=== PATIENT | female | born 1970 | race Two or more races ===

== ENCOUNTER 2024-03-04 01:42 | Inpatient (IN) | payer MEDICARE, MEDICAID ==
[~2024-03-04] VITALS: Ht 162.6 cm; Wt 68.2 kg
[2024-03-04 02:09] LABS: EOSINOPHILS % (AUTO) 6.9 % (1.0-6.0); HEMATOCRIT 42.3 % (36-46); HEMOGLOBIN 14.1 g/dL (12.0-16.0); LYMPHOCYTES # (AUTO) 2.4 K/uL (1.0-4.8); LYMPHOCYTES % (AUTO) 37.6 % (22.0-44.0); MEAN CORPUSCULAR HGB CONC 33.3 G/dL (31.0-37.0); MEAN CORPUSCULAR VOLUME 93 fL (80-100); MONOCYTES # (AUTO) 0.9 K/uL (0.1-1.0); MONOCYTES % (AUTO) 13.8 % (2.0-9.0); NEUTROPHILS # (AUTO) 2.6 K/uL (1.8-7.7); NEUTROPHILS % (AUTO) 40.7 % (40.0-70.0); PLATELET COUNT (AUTO) 408 K/uL (150-450); RED BLOOD CELL COUNT(AUTO) 4.55 MIL/uL (4.00-5.20); RED CELL DISTRIBUTION WIDTH 14.6 % (11.5-14.5); WHITE BLOOD COUNT (AUTO) 6.4 K/uL (4.5-11.0)
[2024-03-04 02:11] LABS: COVID AG,FIA SOURCE NASAL SWAB
[2024-03-04 02:25] LABS: ALANINE AMINOTRANSFERASE 22 U/L (12-78); ALKALINE PHOSPHATASE 92 U/L (46-116); ANION GAP 14 mmol/L (8-16); ASPARTATE AMINOTRANSFERASE 22 U/L (15-37); BILIRUBIN,TOTAL 0.3 mg/dL (0.1-1.0); CALCIUM, TOTAL 8.8 mg/dL (8.8-10.5); CARBON DIOXIDE 26 mmol/L (22-29); CHLORIDE 105 mmol/L (98-107); GLOMERULAR FILTR. RATE CALC > 60 mL/min (>60); GLUCOSE,RANDOM 135 mg/dL (70-110); SODIUM SERUM 145 mmol/L (136-145); TOTAL PROTEIN, SERUM 7.4 g/dL (6.4-8.2); UREA NITROGEN, BLOOD 19 mg/dL (7-18)
[2024-03-04 02:26] LABS: SARS-COV2 (COVID) ANTIGEN,FIA Negative (Negative)
[2024-03-04 02:26] LABS: POTASSIUM 2.8 mmol/L (3.5-5.1)
[2024-03-04] MEDS ORDERED: POTASSIUM CHLORIDE 20 MEQ ER TABLET ONE (02:32)
[2024-03-04] MEDS: POTASSIUM CHLORIDE 20 MEQ ER TABLET PO ONE ×2 (02:34→13:15)
[2024-03-04 02:36] LABS: ALCOHOL, BLOOD (SERUM) < 3 mg/dL (0-10)
[2024-03-04] MEDS ORDERED: OLANZapine 5 MG RAPDIS TABLET PO PRN (04:00)
[2024-03-04] MEDS ORDERED: LORazepam 2 MG TABLET PO PRN (04:00)
[2024-03-04] MEDS ORDERED: DULO-113 PO (08:12)
[2024-03-04] MEDS ORDERED: METO-408 PO (08:12)
[2024-03-04] MEDS ORDERED: FINA5TAB41 PO (08:12)
[2024-03-04] MEDS ORDERED: LISI30TA4 PO (08:12)
[2024-03-04] MEDS ORDERED: GABA-529 PO (08:12)
[2024-03-04] MEDS: HALOPERIDOL LACTATE 5 MG/ML VIAL IM ONE (09:59)
[2024-03-04] MEDS: LORazepam 2 MG/ML VIAL IM ONE (09:59)
[2024-03-04] MEDS: DiphenhydrAMINE HCL 50 MG/ML VIAL IM ONE (09:59)
[2024-03-04] MEDS ORDERED: ACETAMINOPHEN 325 MG TABLET PO PRN (10:30)
[2024-03-04] MEDS ORDERED: LOPERAMIDE HCL 2 MG CAPSULE PO PRN (10:30)
[2024-03-04] MEDS ORDERED: MAG HYDROX/ALUMINUM HYD/SIMETH ES 30 ML SUSPENSION UDCUP PO PRN (10:30)
[2024-03-04] MEDS ORDERED: TUBERCULIN, PURIFIED PROTEIN DERIVATIVE 5 TU/0.1 ML SYRINGE ID ONE (10:30)
[2024-03-04] MEDS ORDERED: GuaiFENesin/D-METHORPHAN [SUGAR-FREE] 200-20MG/10 ML SYRUP UDCUP PO PRN (10:30)
[2024-03-04] MEDS ORDERED: PROMETHAZINE HCL 25 MG TABLET PO PRN (10:30)
[2024-03-04] MEDS ORDERED: MAGNESIUM HYDROXIDE SUSPENSION 30 ML UDCUP PO PRN (10:30)
[2024-03-04] MEDS: GABAPENTIN 100 MG CAPSULE PO SCH (13:00)
[2024-03-04 13:33] VITALS: BP 141/93; PULSE 59; RESP 16; TEMP 97.3; O2SAT 97
[2024-03-04] MEDS: LISINOPRIL 10 MG TABLET PO SCH (16:15)
[2024-03-04] MEDS: THIAMINE 100 MG TABLET PO SCH (17:00)
[2024-03-04 20:22] VITALS: RESP 18
[2024-03-04] MEDS: DIVALPROEX SODIUM 250 MG ER TABLET PO SCH (21:00)
[2024-03-04] MEDS: OLANZapine 5 MG RAPDIS TABLET PO SCH (21:00)
[2024-03-04] MEDS: MELATONIN 5 MG TABLET PO SCH (21:00)
[2024-03-05] MEDS: OMEGA-3/DHA/EPA/FISH OIL 1,000 MG CAPSULE PO SCH (09:27)
[2024-03-05] MEDS: FOLIC ACID 1 MG TABLET PO SCH (09:27)
[2024-03-05] MEDS: MULTIVITAMINS WITH MINERALS, THERAPEUTIC TABLET PO SCH (09:28)
[2024-03-05] MEDS: NALTREXONE HCL 50 MG TABLET PO SCH (09:29)
[2024-03-05] MEDS: POTASSIUM CHLORIDE 20 MEQ ER TABLET PO ONE (10:28)
[2024-03-05] MEDS: METOPROLOL SUCCINATE 25 MG ER TABLET PO SCH (10:28)
[2024-03-05 11:48] VITALS: BP 148/90; PULSE 79; RESP 17; TEMP 97.5; O2SAT 99
[2024-03-05] MEDS: GABAPENTIN 400 MG CAPSULE PO SCH (17:52)
[2024-03-05] MEDS: BusPIRone HCL 5 MG TABLET PO SCH (17:53)
[2024-03-05 20:40] VITALS: BP 131/79; PULSE 66; RESP 18; TEMP 98.2; O2SAT 97
[2024-03-05] MEDS: AMITRIPTYLINE HCL 10 MG TABLET PO SCH (20:44)
[2024-03-05] MEDS: ZOLPIDEM TARTRATE 10 MG TABLET PO PRN (21:49)
[2024-03-06] MEDS: DULoxetine HCL 30 MG CAPSULE PO SCH (08:00)
[2024-03-06 08:07] VITALS: BP 143/83; PULSE 64; RESP 17; TEMP 97.7; O2SAT 99
[2024-03-06] MEDS ORDERED: DESIPRAMINE HCL 10 MG TABLET PO SCH (09:00)
[2024-03-06 09:50] LABS: CHOL/HDL RATIO 2.6 (3.9-5.7); FREE T4 (FREE THYROXINE) 1.26 ng/dL (0.76-1.46); POTASSIUM 3.2 mmol/L (3.5-5.1); THYROID STIMULATING HORMONE 0.29 uIU/mL (0.36-3.74)
[2024-03-06] MEDS: POTASSIUM CHLORIDE 20 MEQ ER TABLET PO ONE ×2 (11:03→16:27)
[2024-03-06 14:26] VITALS: BP 146/78; PULSE 60; RESP 18; TEMP 97.2; O2SAT 98
[2024-03-06] MEDS ORDERED: NALT50TA33 PO (15:14)
[2024-03-06] MEDS ORDERED: DULO-114 PO (15:14)
[2024-03-06] MEDS ORDERED: MELA5TAB40 PO (15:14)
[2024-03-06] MEDS ORDERED: AMIT-166 PO (15:14)
[2024-03-06] MEDS ORDERED: OMEG-135 PO (15:14)
[2024-03-06] MEDS ORDERED: GABA-1201 PO (15:14)
[2024-03-06] MEDS ORDERED: BUSP10TA23 PO (15:14)
[2024-03-06] MEDS: BusPIRone HCL 10 MG TABLET PO SCH (16:27)
[2024-03-06] MEDS: GABAPENTIN 300 MG CAPSULE PO SCH (16:28)
[2024-03-06] MEDS: HydrOXYzine PAMOATE 50 MG CAPSULE PO PRN (19:36)
[2024-03-06 20:35] VITALS: BP 139/85; PULSE 65; RESP 18; TEMP 97.9; O2SAT 97
[2024-03-06] MEDS: AMITRIPTYLINE HCL 10 MG TABLET PO SCH (21:09)
[2024-03-07] MEDS: DULoxetine HCL 20 MG CAPSULE PO SCH (08:47)
[2024-03-07 09:51] VITALS: BP 157/66; PULSE 62; RESP 18; TEMP 97.4; O2SAT 98
[2024-03-07] MEDS ORDERED: AMIT-166 PO (12:21)
[2024-03-07] MEDS ORDERED: BUSP10TA23 PO (12:21)
[2024-03-07] MEDS ORDERED: DULO20CA71 PO (12:22)
[2024-03-07] MEDS ORDERED: GABA-1181 PO (12:22)
[2024-03-07] MEDS ORDERED: MELA5TAB40 PO (12:23)
[2024-03-07] MEDS ORDERED: NALT50TA33 PO (12:24)
[2024-03-07] MEDS ORDERED: OMEG-135 PO (12:24)
[2024-03-10] MEDS ORDERED: BACL10TA PO (09:08)
[2024-03-10] MEDS ORDERED: GABA-1181 PO (09:08)
== END 2024-03-07 16:02 | disposition home or self-care (01) | DRG 885 ==
LOC: EMS 01:42 → UNDOADMIN 05:13 → 3EC 05:13 → 3EI 05:13
PROVIDERS: ADMIT Psychiatry & Neurology Psychiatry; ATTEND Psychiatry & Neurology Psychiatry
PROC: GZHZZZZ Group Psychotherapy (ICD-10-PCS; principal; 2024-03-04)
PROC: GZ51ZZZ Individual Psychotherapy, Behavioral (ICD-10-PCS; 2024-03-04)
PROC: GZ56ZZZ Individual Psychotherapy, Supportive (ICD-10-PCS; 2024-03-05)
DX: F25.9 Schizoaffective disorder, unspecified (principal); F33.2 Major depressive disorder, recurrent severe without psychotic features; F29 Unspecified psychosis not due to a substance or known physiological condition; F17.210 Nicotine dependence, cigarettes, uncomplicated; F10.10 Alcohol abuse, uncomplicated; F12.10 Cannabis abuse, uncomplicated; M54.2 Cervicalgia; F41.9 Anxiety disorder, unspecified; Z20.822 Contact with and (suspected) exposure to COVID-19; E87.6 Hypokalemia; F44.5 Conversion disorder with seizures or convulsions; Z88.6 Allergy status to analgesic agent; Z88.1 Allergy status to other antibiotic agents; Z88.0 Allergy status to penicillin; Z88.2 Allergy status to sulfonamides; Z88.3 Allergy status to other anti-infective agents; Z79.899 Other long term (current) drug therapy
CPT/HCPCS: 70450; 80053; 80061; 83036; 84132; 84439; 84443; 85025; 86592; 99285; G0480; J1200; J1630; J2060; Q9967

== ENCOUNTER 2025-09-09 07:57 | Inpatient (IN) | payer OTHER ==
[~2025-09-09] VITALS: Ht 160 cm; Wt 74.0 kg
[~2025-09-09 07:57] MED LIST: CIPR250T6 PO; LISI20TA24 PO; OLAN5TAB94 PO; OXCA300T70 PO
[2025-09-09 08:26] LABS: COVID AG,FIA SOURCE NASAL SWAB
[2025-09-09 08:30] LABS: PLATELET COUNT (AUTO) 298 K/uL (150-450); RED BLOOD CELL COUNT(AUTO) 4.96 MIL/uL (4.00-5.20); RED CELL DISTRIBUTION WIDTH 14.3 % (11.5-14.5); WHITE BLOOD COUNT (AUTO) 5.3 K/uL (4.5-11.0)
[2025-09-09 08:35] LABS: CALCIUM, TOTAL 8.7 mg/dL (8.8-10.5); CREATININE 0.78 mg/dL (0.60-1.30); GLOMERULAR FILTR. RATE CALC > 60 mL/min (>60); GLUCOSE,RANDOM 129 mg/dL (70-110); SODIUM SERUM 142 mmol/L (136-145); UREA NITROGEN, BLOOD 17 mg/dL (7-18)
[2025-09-09 09:20] LABS: SARS-COV2 (COVID) ANTIGEN,FIA Negative (Negative)
[2025-09-09] MEDS: POTASSIUM CHLORIDE 40 MEQ in SODIUM CHLORIDE 0.45% 1,000 ML IV ONE (09:31)
[2025-09-09] MEDS: LORazepam 2 MG/ML VIAL IVP ONE (10:53)
[2025-09-09 13:57] LABS: APPEARANCE,URINE HAZY (CLEAR); GLUCOSE, URINE (UA) NEGATIVE (NEGATIVE); LEUKOCYTE ESTERASE ,URINE LARGE (NEGATIVE); NITRATE,URINE NEGATIVE (NEGATIVE); OCCULT BLOOD,URINE NEGATIVE (NEGATIVE); PH,URINE DRUG SCREEN 6.5 (5.0-8.0); SPECIFIC GRAVITIY, URINE 1.027 (1.003-1.030)
[2025-09-09 14:04] LABS: ALCOHOL, URINE DRUG SCREEN NEGATIVE (NEGATIVE); AMPHET/METH SCREEN,URINE NEGATIVE (NEGATIVE); BARBITURATE SCREEN, URINE NEGATIVE (NEGATIVE); CANNABINOID SCREEN,URINE POSITIVE (NEGATIVE); COCAINE SCREEN,URINE NEGATIVE (NEGATIVE); METHADONE SCREEN, URINE NEGATIVE (NEGATIVE); SQUAMOUS EPITHELIAL CELL,UR Moderate /LPF (None Seen)
[2025-09-09] MEDS: POTASSIUM CHLORIDE 20 MEQ ER TABLET PO ONE (14:42)
[2025-09-09] MEDS ORDERED: ZOLPIDEM TARTRATE 5 MG TABLET PO PRN (15:30)
[2025-09-09] MEDS ORDERED: HYDROCODONE/ACETAMINOPHEN 5-325 MG TABLET PO PRN (15:30)
[2025-09-09] MEDS ORDERED: MORPHINE SULFATE 4 MG/ML SYRINGE IVP PRN (15:30)
[2025-09-09] MEDS ORDERED: ONDANSETRON HCL 4 MG/2 ML VIAL IVP PRN (15:30)
[2025-09-09] MEDS ORDERED: BISACODYL 10 MG RECTAL RECTAL SUPPOSITORY PR PRN (15:30)
[2025-09-09] MEDS ORDERED: POTASSIUM CHL 10 MEQ/WATER 50 ML IV PRN (15:30)
[2025-09-09] MEDS: *CLINICAL-LEVOFLOXACIN IVPB DOSING CLINICAL ONE (15:30)
[2025-09-09] MEDS ORDERED: ACETAMINOPHEN 325 MG TABLET PO PRN (15:30)
[2025-09-09] MEDS ORDERED: MAGNESIUM HYDROXIDE SUSPENSION 30 ML UDCUP PO PRN (15:30)
[2025-09-09] MEDS: LEVOFLOXACIN 750 MG/D5% WATER 150 ML IV SCH (16:15)
[2025-09-09] MEDS: HEPARIN SODIUM,PORCINE 5,000 UNITS/ML VIAL SQ SCH (16:15)
[2025-09-09] MEDS: DOCUSATE SODIUM 100 MG CAPSULE PO SCH (21:00)
[2025-09-09 21:47] VITALS: BP 137/59; PULSE 71; RESP 19; TEMP 98.2; O2SAT 97
[2025-09-09] MEDS: OLANZapine 5 MG RAPDIS TABLET PO SCH (22:07)
[2025-09-09 23:39] VITALS: BP 135/81; PULSE 71; RESP 17; TEMP 97.9; O2SAT 97
[2025-09-10 03:52] VITALS: BP 144/77; PULSE 62; RESP 17; TEMP 97.9; O2SAT 97
[2025-09-10 05:33] LABS: PLATELET COUNT (AUTO) 280 K/uL (150-450); RED BLOOD CELL COUNT(AUTO) 4.52 MIL/uL (4.00-5.20); RED CELL DISTRIBUTION WIDTH 14.7 % (11.5-14.5); WHITE BLOOD COUNT (AUTO) 4.9 K/uL (4.5-11.0)
[2025-09-10 05:42] LABS: CALCIUM, TOTAL 8.4 mg/dL (8.8-10.5); CREATININE 0.46 mg/dL (0.60-1.30); GLOMERULAR FILTR. RATE CALC > 60 mL/min (>60); GLUCOSE,RANDOM 85 mg/dL (70-110); SODIUM SERUM 146 mmol/L (136-145); UREA NITROGEN, BLOOD 13 mg/dL (7-18)
[2025-09-10] MEDS: POTASSIUM CHLORIDE 20 MEQ ER TABLET PO PRN (06:45)
[2025-09-10 07:19] VITALS: BP 142/76; PULSE 76; RESP 18; TEMP 98; O2SAT 97
[2025-09-10] MEDS: PANTOPRAZOLE SODIUM 40 MG DR TABLET PO SCH (08:45)
[2025-09-10 11:30] VITALS: BP 151/96; PULSE 87; RESP 19; TEMP 98; O2SAT 96
[2025-09-10 16:06] VITALS: BP 133/79; PULSE 74; RESP 18; TEMP 97; O2SAT 97
[2025-09-10] MEDS ORDERED: SODIUM CHLORIDE 0.9% 250 ML IV ONE (16:27)
[2025-09-10 19:46] VITALS: BP 123/65; PULSE 64; RESP 18; TEMP 98.4; O2SAT 100
[2025-09-11 00:18] VITALS: BP 126/83; PULSE 72; RESP 18; TEMP 97.5; O2SAT 96
[2025-09-11 01:07] LABS: HEPATITIS C AB (EIA) Non Reactive (Non Reactive)
[2025-09-11 04:10] VITALS: BP 141/84; PULSE 74; RESP 18; TEMP 98.1; O2SAT 97
[2025-09-11 06:45] LABS: PLATELET COUNT (AUTO) 278 K/uL (150-450); RED BLOOD CELL COUNT(AUTO) 4.32 MIL/uL (4.00-5.20); RED CELL DISTRIBUTION WIDTH 14.8 % (11.5-14.5); WHITE BLOOD COUNT (AUTO) 4.9 K/uL (4.5-11.0)
[2025-09-11 06:46] LABS: CALCIUM, TOTAL 8.0 mg/dL (8.8-10.5); CREATININE 0.55 mg/dL (0.60-1.30); GLOMERULAR FILTR. RATE CALC > 60 mL/min (>60); GLUCOSE,RANDOM 89 mg/dL (70-110); SODIUM SERUM 142 mmol/L (136-145); UREA NITROGEN, BLOOD 15 mg/dL (7-18)
[2025-09-11 09:28] VITALS: BP 136/82; PULSE 71; RESP 17; TEMP 98; O2SAT 98
[2025-09-11 15:29] LABS: COVID AG,FIA SOURCE NASAL SWAB
[2025-09-11 15:52] LABS: SARS-COV2 (COVID) ANTIGEN,FIA Negative (Negative)
[2025-09-11 19:07] VITALS: BP 134/88; PULSE 77; RESP 17; TEMP 98.2; O2SAT 95
[2025-09-12 00:06] VITALS: BP 133/82; PULSE 76; RESP 18; TEMP 98.1; O2SAT 98
[2025-09-12 05:20] VITALS: BP 152/93; PULSE 53; RESP 18; TEMP 98.1; O2SAT 98
[2025-09-12 07:28] LABS: PLATELET COUNT (AUTO) 279 K/uL (150-450); RED BLOOD CELL COUNT(AUTO) 4.22 MIL/uL (4.00-5.20); RED CELL DISTRIBUTION WIDTH 14.4 % (11.5-14.5); WHITE BLOOD COUNT (AUTO) 4.9 K/uL (4.5-11.0)
[2025-09-12 07:32] VITALS: BP 126/70; PULSE 74; RESP 18; TEMP 98; O2SAT 98
[2025-09-12 07:40] LABS: CALCIUM, TOTAL 8.0 mg/dL (8.8-10.5); CREATININE 0.34 mg/dL (0.60-1.30); GLOMERULAR FILTR. RATE CALC > 60 mL/min (>60); GLUCOSE,RANDOM 93 mg/dL (70-110); SODIUM SERUM 141 mmol/L (136-145); UREA NITROGEN, BLOOD 15 mg/dL (7-18)
[2025-09-12 11:50] VITALS: BP 139/82; PULSE 65; RESP 17; TEMP 98.2; O2SAT 96
[2025-09-12] MEDS: POTASSIUM CHLORIDE 20 MEQ ER TABLET PO ONE (14:02)
[2025-09-12 16:00] VITALS: BP 118/64; PULSE 61; RESP 17; TEMP 98.4; O2SAT 98
[2025-09-12 19:36] VITALS: BP 148/81; PULSE 65; RESP 18; TEMP 97.9; O2SAT 96
== END 2025-09-12 21:00 | DRG 690 ==
LOC: EMS 07:57 → EDH 12:52 → 5S 21:38
PROVIDERS: ADMIT Internal Medicine; ATTEND Internal Medicine
DX: N39.0 Urinary tract infection, site not specified (principal); R45.851 Suicidal ideations; E87.6 Hypokalemia; I16.0 Hypertensive urgency; F25.0 Schizoaffective disorder, bipolar type; Z20.822 Contact with and (suspected) exposure to COVID-19; F12.90 Cannabis use, unspecified, uncomplicated; G40.909 Epilepsy, unspecified, not intractable, without status epilepticus; I10 Essential (primary) hypertension; Z88.0 Allergy status to penicillin; Z88.2 Allergy status to sulfonamides; Z88.3 Allergy status to other anti-infective agents; Z88.6 Allergy status to analgesic agent
CPT/HCPCS: 80048; 80307; 81001; 83735; 84132; 85025; 86803; 87086; 87340; 99285; G0378; G0480; J0360; J1200; J1630; J1644; J1956; J2060; J3480; J7050

== ENCOUNTER 2025-09-10 13:19 | Inpatient (IN) | payer MEDICARE, MEDICAID ==
[~2025-09-10] VITALS: Ht 157.5 cm; Wt 165.9 kg
[2025-09-12 08:38] LABS: CHOL/HDL RATIO 2.4 (3.9-5.7); LDL CHOL (CALC.) 62.0 mg/dL (0-130)
[2025-09-12 21:25] VITALS: BP 148/89; PULSE 64; RESP 18; TEMP 97.7; O2SAT 96
[2025-09-12] MEDS: ZOLPIDEM TARTRATE 10 MG TABLET PO PRN (21:38)
[2025-09-13] MEDS ORDERED: LOPERAMIDE HCL 2 MG CAPSULE PO PRN (05:45)
[2025-09-13] MEDS ORDERED: NICOTINE 14 MG/24 HOUR PATCH TD PRN (05:45)
[2025-09-13] MEDS ORDERED: PETROLATUM,WHITE 28 GM JELLY TP PRN (05:45)
[2025-09-13] MEDS ORDERED: IBUPROFEN 400 MG TABLET PO PRN (05:45)
[2025-09-13] MEDS ORDERED: ACETAMINOPHEN 325 MG TABLET PO PRN (05:45)
[2025-09-13] MEDS ORDERED: GuaiFENesin/D-METHORPHAN [SUGAR-FREE] 200-20MG/10 ML SYRUP UDCUP PO PRN (05:45)
[2025-09-13] MEDS ORDERED: ALBUTEROL SULFATE HFA 90 MCG/PUFF 8 GM INHALER IH PRN (05:45)
[2025-09-13] MEDS ORDERED: ONDANSETRON 4 MG TABLET PO PRN (05:45)
[2025-09-13] MEDS ORDERED: MAGNESIUM HYDROXIDE SUSPENSION 30 ML UDCUP PO PRN (05:45)
[2025-09-13] MEDS ORDERED: MAG HYDROX/ALUMINUM HYD/SIMETH ES 30 ML SUSPENSION UDCUP PO PRN (05:45)
[2025-09-13 09:27] VITALS: BP 165/97; PULSE 78; RESP 16; TEMP 97.9; O2SAT 100
[2025-09-13 11:29] LABS: APPEARANCE,URINE CLEAR (CLEAR); GLUCOSE, URINE (UA) NEGATIVE (NEGATIVE); LEUKOCYTE ESTERASE ,URINE LARGE (NEGATIVE); NITRATE,URINE NEGATIVE (NEGATIVE); OCCULT BLOOD,URINE NEGATIVE (NEGATIVE); PH,URINE DRUG SCREEN 7.0 (5.0-8.0); SPECIFIC GRAVITIY, URINE 1.007 (1.003-1.030)
[2025-09-13 11:42] LABS: SQUAMOUS EPITHELIAL CELL,UR Few /LPF (None Seen)
[2025-09-13 11:47] LABS: ALCOHOL, URINE DRUG SCREEN NEGATIVE (NEGATIVE); AMPHET/METH SCREEN,URINE NEGATIVE (NEGATIVE); BARBITURATE SCREEN, URINE NEGATIVE (NEGATIVE); CANNABINOID SCREEN,URINE NEGATIVE (NEGATIVE); COCAINE SCREEN,URINE NEGATIVE (NEGATIVE); METHADONE SCREEN, URINE NEGATIVE (NEGATIVE)
[2025-09-13 19:16] VITALS: BP 147/94; PULSE 89; RESP 16; O2SAT 96
[2025-09-13] MEDS: OLANZapine 5 MG RAPDIS TABLET PO SCH (20:12)
[2025-09-13 22:40] VITALS: BP 141/85; PULSE 85; RESP 18; TEMP 97.8; O2SAT 98
[2025-09-14 07:36] LABS: PLATELET COUNT (AUTO) 300 K/uL (150-450); RED BLOOD CELL COUNT(AUTO) 5.12 MIL/uL (4.00-5.20); RED CELL DISTRIBUTION WIDTH 14.9 % (11.5-14.5); WHITE BLOOD COUNT (AUTO) 4.9 K/uL (4.5-11.0)
[2025-09-14 07:54] LABS: CHOL/HDL RATIO 2.7 (3.9-5.7); LDL CHOL (CALC.) 90.0 mg/dL (0-130)
[2025-09-14 08:02] LABS: ASPARTATE AMINOTRANSFERASE 18 U/L (15-37); CALCIUM, TOTAL 8.8 mg/dL (8.8-10.5); CREATININE 0.47 mg/dL (0.60-1.30); GLOMERULAR FILTR. RATE CALC > 60 mL/min (>60); GLUCOSE,RANDOM 95 mg/dL (70-110); SODIUM SERUM 141 mmol/L (136-145); TOTAL PROTEIN, SERUM 7.6 g/dL (6.4-8.2); UREA NITROGEN, BLOOD 8 mg/dL (7-18)
[2025-09-14 09:13] VITALS: BP 139/88; PULSE 78; RESP 18; TEMP 97.7; O2SAT 98
[2025-09-14 10:08] LABS: PLATELET MORPHOLOGY COMMENT GIANT PLTS PRESENT
[2025-09-14] MEDS: POTASSIUM CHLORIDE 20 MEQ ER TABLET PO ONE (18:19)
[2025-09-14 20:01] VITALS: BP 137/90; PULSE 68; RESP 18; TEMP 98.3; O2SAT 98
[2025-09-14] MEDS: OLANZapine 5 MG RAPDIS TABLET PO SCH (21:10)
[2025-09-15 11:09] VITALS: BP 144/83; PULSE 80; RESP 18; TEMP 98.3; O2SAT 99
[2025-09-15 20:34] VITALS: BP 151/86; PULSE 63; RESP 18; TEMP 98.1; O2SAT 98
[2025-09-16 09:39] VITALS: BP 169/90; PULSE 67; RESP 16; TEMP 97.7; O2SAT 100
[2025-09-16 20:20] VITALS: BP 110/64; PULSE 56; RESP 16; TEMP 98.2; O2SAT 99
[2025-09-17 09:15] VITALS: BP 190/103; PULSE 60; RESP 16; TEMP 98.1; O2SAT 100
[2025-09-17 20:21] VITALS: BP 132/68; PULSE 99; RESP 18; TEMP 98.1; O2SAT 99
[2025-09-17] MEDS: DOCUSATE SODIUM 100 MG CAPSULE PO PRN (20:45)
[2025-09-18 08:49] VITALS: BP 147/93; PULSE 70; RESP 16; TEMP 97.9; O2SAT 99
[2025-09-18 20:08] VITALS: BP 136/84; PULSE 72; RESP 16; TEMP 97.9; O2SAT 99
[2025-09-19 09:11] VITALS: BP 161/82; PULSE 63; RESP 17; TEMP 97.7; O2SAT 98
[2025-09-19 20:21] VITALS: BP 135/89; PULSE 70; RESP 18; TEMP 98; O2SAT 98
[2025-09-20 10:04] VITALS: BP 143/89; PULSE 80; RESP 18; TEMP 98.4; O2SAT 100
[2025-09-20 21:29] VITALS: BP 149/98; PULSE 69; RESP 18; TEMP 97.7; O2SAT 97
[2025-09-21] MEDS ORDERED: OLAN5TAB94 PO (11:20)
[2025-09-21] MEDS ORDERED: LISI-894 PO (11:20)
[2025-09-21] MEDS ORDERED: OXCA300T70 PO (11:20)
[2025-09-21 11:34] VITALS: BP 148/89; PULSE 66; RESP 18; TEMP 97.8; O2SAT 99
== END 2025-09-21 18:01 | disposition home or self-care (01) | DRG 885 ==
LOC: 3EC 09-12 21:02
PROVIDERS: ADMIT Psychiatry & Neurology Psychiatry; ATTEND Psychiatry & Neurology Psychiatry
PROC: GZHZZZZ Group Psychotherapy (ICD-10-PCS; principal; 2025-09-13)
PROC: GZ52ZZZ Individual Psychotherapy, Cognitive (ICD-10-PCS; 2025-09-15)
DX: F25.0 Schizoaffective disorder, bipolar type (principal); N39.0 Urinary tract infection, site not specified; G40.909 Epilepsy, unspecified, not intractable, without status epilepticus; I10 Essential (primary) hypertension; E87.6 Hypokalemia; F12.10 Cannabis abuse, uncomplicated; F41.9 Anxiety disorder, unspecified; G47.00 Insomnia, unspecified; Z88.0 Allergy status to penicillin; Z88.2 Allergy status to sulfonamides; Z88.3 Allergy status to other anti-infective agents; Z88.6 Allergy status to analgesic agent; Z79.899 Other long term (current) drug therapy
CPT/HCPCS: 80053; 80061; 80307; 81001; 83036; 84132; 84443; 85025; 87081; 87086